=== PATIENT | female | born 1970 | race Two or more races ===

== ENCOUNTER 2024-01-26 11:40 | Emergency (ER) | payer OTHER ==
--- NOTE | 2024-01-26 14:10 | ED Physician Documentation ---
PD HPI UPPER EXT INJURY - Stated complaint Stated Complaint: LT ELBOW PX - Chief complaint Chief Complaint: Trauma Ext - History obtained from History obtained from: Patient - History of Present Illness Location: Left, Elbow Type of injury: Fall (onto elbow, with pain abruptly.) Timing - onset: Today Timing - details: Abrupt onset, Still present Worsened by: Moving, Palpating Associated symptoms: Swelling. No: Weakness, Numbness Similar symptoms before: Has not had sx before Review of Systems Musculoskeletal: denies: Neck pain, Back pain Neurologic: denies: Focal weakness, Numbness, Headache, Head injury PD PAST MEDICAL HISTORY - Past Medical History Past Medical History: Yes Cardiovascular: Hypertension Respiratory: None Neuro: None Endocrine/Autoimmune: None GI: None AERONAUTICAL INSPECTOR: None : None HEENT: None Psych: None Musculoskeletal: None Derm: None - Past Surgical History Past Surgical History: No - Present Medications Home Medications: Ambulatory Orders Medication Instructions Recorded Confirmed HYDROcod/ACETAM 5/325 [[place] 5/325] 1 ea PO Q6H PRN #10 tablet 01/26/24 Naproxen 500 mg PO BID #30 tab 01/26/24 - Allergies Allergies/Adverse Reactions: Allergies Allergy/AdvReac Type Severity Reaction Status Date / Time lisinopril AdvReac Respiratory Verified 01/26/24 12:20 - Social History Does the pt smoke?: No Smoking Status: Never smoker Does the pt drink ETOH?: No Does the pt have substance abuse?: No - Immunizations Immunizations are current?: No Immunizations: TDAP >10years/unknown - POLST Patient has POLST: No PD ED PE NORMAL - Vitals Vital signs reviewed: Yes - General General: Alert and oriented X 3, Well developed/nourished - HEENT HEENT: Atraumatic - Neck Neck: Supple, no meningeal sign - Derm Derm: Normal color, Warm and dry - Extremities Extremities: Other (left elbow with large effusion, very tender, and feels like posterior dislocation. Normal sensation and movement in fingers/wrist. ) - Neuro Neuro: Alert and oriented X 3, No motor deficit, No sensory deficit Eye Opening: Spontaneous Motor: Obeys Commands Verbal: Oriented GCS Score: 15 Results - Vitals Vitals: Vital Signs - 24 hr 01/26/24 01/26/24 01/26/24 12:20 15:25 15:32 Temperature 36.8 C 37.2 C Heart Rate 120 H 103 H 118 H Respiratory 16 20 14 Rate Blood Pressure 160/90 H 186/102 H 164/102 H O2 Saturation 99 97 95 If not protocol : Oxygen Flow, liters/minute 01/26/24 01/26/24 01/26/24 15:34 15:37 15:40 Temperature Heart Rate 105 H 98 106 H Respiratory 14 23 16 Rate Blood Pressure 175/100 H 172/106 H 165/109 H O2 Saturation 94 94 99 If not protocol 2 : Oxygen Flow, liters/minute 01/26/24 01/26/24 01/26/24 15:45 15:56 16:00 Temperature 36.8 C Heart Rate 120 H 104 H Respiratory 20 15 Rate Blood Pressure 163/91 H 162/102 H O2 Saturation 97 96 If not protocol 2 : Oxygen Flow, liters/minute 01/26/24 18:03 Temperature Heart Rate 84 Respiratory 20 Rate Blood Pressure 138/84 H O2 Saturation 98 If not protocol : Oxygen Flow, liters/minute Oxygen O2 Source Room air Procedures - Reduction Body part reduced: Left, Elbow Fracture or dislocation: Dislocation Anesthesia: Dilaudid Reduction aftercare: NV intact, Xray confirms reduction, Alignment improved, Splint applied, Sling, Patient tolerated well - Procedural sedation Sedation prep: Informed consent, Time out completed, Last meal (last evening), ASA 2 - mild disease, IV O2 monitor, ET CO2 monitor, RT present Sedation Medications: propofol Mallampati classification: I Patient status during sedation: Responds to tactile, Vitals remained stable, Maintained airway, Recovered uneventfully Sedation recovery: Recovered uneventfully, Back to baseline Time in sedation (Minutes): 15 PD Medical Decision Making - ED course Complexity details: reviewed results (posterior elbow dislocation, with small chip fracture. postreduction shows good positioning and same smallchip fracture not in joint space. ), considered differential, d/w patient ED course: Accidental fall without any injury to the head neck or trunk. She landed on her elbow she states "with all my weight". Has a small chip fracture but mainly a posterior dislocation. We did discuss the concerns and treatment to include tearing of ligaments and tendons around the elbow in order to dislocate. The patient consented to sedation and reduction after discussing risks benefits and alternatives. I also described the care team to involve respiratory therapy and nursing staff. The patient had been given pain medicine prior to this during the x-ray and set up for the reduction. She was reasonably comfortable with the elbow resting and placed on a pillow along with pain medicines. Then for the procedure itself we sedated with propofol and successfully reduced the elbow as evidence both clinically and on x-ray. Normal neuro after. The patient recovered well. She was placed in a posterior splint and sling. To follow-up with orthopedics. Departure - Departure Disposition: 01 Home, Self Care Clinical Impression: Accidental fall, Elbow dislocation Condition: Stable Record reviewed to determine appropriate education?: Yes Instructions: ED Dislocated Elbow Follow-Up: Orthopedic Care [Provider Group] Prescriptions: Naproxen 500 mg PO BID #30 tab HYDROcod/ACETAM 5/325 [[place] 5/325] 1 ea PO Q6H PRN #10 tablet PRN Reason: Pain Comments: Keep the splint and sling on until follow-up. Obviously the sling can come off temporarily for changing close etc. I would suggest regular anti-inflammatory such as naproxen twice daily for the next week or 2. No doses for just Tylenol/acetaminophen 500 to 650 mg 4 times daily for the next several days at least preempting or trying to help with the pain I had. Add hydrocodone/acetaminophen if needed for worse pain. We sent you home with some and sent a prescription to [facility] pharmacy. Follow-up with orthopedic clinic in about 1 to 1-1/2 weeks to see how it is healing and if any other treatment is needed and whether mobilization can be sta rted. Elevate ice and rest your elbow often to help with swelling. I sent your prescription to [facility] pharmacy. I am prescribing a short course of narcotic pain medication for you. These are potentially dangerous and addictive medications that should be used carefully. These medications may constipate you. Take an [id number] stool softener such as docusate twice daily with plenty of water while taking these medications. If you go 24 hours without a bowel movement, take [id number] MiraLAX, per package instructions. Do not drink or drive while taking these medications. If you received narcotic or sedating medications while in the emergency department do not drive for 24 hours. Store this medication in a safe, secure place and out of reach of children. It is a violation of federal law to give or sell this medication to another person or to use in a manner other than prescribed. The ED will not refill narcotic prescriptions, including prescriptions lost or stolen. You can dispose of unwanted medications at the [facility] office or at several pharmacies such as [facility]. Forms: PCP List Discharge Date/Time: 01/26/24 18:03
--- NOTE | 2024-01-26 14:11 | XRAY Report ---
PROCEDURE: Elbow 3+V LT INDICATIONS: Trauma TECHNIQUE: 3 views of the elbow were acquired. COMPARISON: None. FINDINGS: Bones: Dislocation of the elbow joint, small bone fragment adjacent to the radial head on frontal vie w, possibly from the distal humerus or coronoid process. There is irregularity of the coronoid proces s seen on lateral view. Soft tissues: Joint effusion is present. IMPRESSION: Dislocation of the elbow, with small intra-articular and periarticular fracture fragments. Reviewed by: Edmond Juarez MD on 01/26/2024 2:09 PM PDT Approved by: Edmond Juarez MD on 01/26/2024 2:09 PM PDT Station ID: [id number]
[2024-01-26] MEDS: KETOROLAC 15 MG/ML VIAL IVP PRN (14:23)
[2024-01-26] MEDS: HYDROmorphone 1 MG/ML CARPUJECT IVP STA (14:23)
[2024-01-26] MEDS: PROPOFOL 200 MG/20 ML VIAL IVP STA (15:29)
--- NOTE | 2024-01-26 16:22 | XRAY Report ---
PROCEDURE: Elbow 1-2V LT INDICATIONS: post reduction TECHNIQUE: 3 views of the elbow were acquired. COMPARISON: Same day. FINDINGS: Bones: Elbow appears appropriately positioned status post reduction. Fracture fragments seen adjacen t to the lateral epicondyle. No suspicious bony lesions. Soft tissues: No effusion. No suspicious soft tissue calcifications or masses. IMPRESSION: Elbow appears appropriately positioned status post reduction. Fracture fragment seen adjacent to the lateral epicondyle. Reviewed by: Yoav Fraire MD on 01/26/2024 3:20 PM [place]ALIA Approved by: Yoav Fraire MD on 01/26/2024 3:20 PM ORALIA Station ID: [id number]
[2024-01-26] MEDS: HYDROcod/ACET 5/325 Prepack 4 PO STA (17:48)
[2024-01-26 18:07] VITALS: BP 138/84; O2SAT 98
== END 2024-01-26 18:03 | disposition home or self-care (01) ==
LOC: ED 11:40
DX: S53.105A Unspecified dislocation of left ulnohumeral joint, initial encounter (principal); S42.402A Unspecified fracture of lower end of left humerus, initial encounter for closed fracture; W18.30XA Fall on same level, unspecified, initial encounter
CPT/HCPCS: 24600; 73070; 73080; 96374; 99152; 99284; 99285; J1170

== ENCOUNTER 2024-02-04 17:30 | Outpatient (CLI) | payer OTHER ==
--- NOTE | 2024-02-05 18:27 | XRAY Report ---
PROCEDURE: Elbow 3+V LT INDICATIONS: LEFT ELBOW PAIN TECHNIQUE: 3 views of the elbow were acquired. COMPARISON: 01/26/2024. FINDINGS: Bones: Anatomic elbow alignment. Small fracture fragment adjacent to lateral epicondyles are again s een. Cortical irregularity involving lateral cortex of distal humeral shaft is also noted. No suspici ous bony lesions. Soft tissues: No effusion. No suspicious soft tissue calcifications or masses. IMPRESSION: Stable appearance of minimally displaced distal humeral shaft/lateral epicondylar fracture. No new fr acture or dislocation. Anatomic elbow alignment. No significant joint effusion. Reviewed by: Balbir Marinelli MD on 02/05/2024 6:26 PM PDT Approved by: Balbir Marinelli MD on 02/05/2024 6:26 PM PDT Station ID: [id number]
== END 2024-02-04 17:31 | disposition home or self-care (01) ==
LOC: DI 17:30
PROVIDERS: ATTEND Orthopaedic Surgery
DX: S42.432A Displaced fracture (avulsion) of lateral epicondyle of left humerus, initial encounter for closed fracture (principal)